=== PATIENT | female | born 1960 | race Caucasian/White ===

== ENCOUNTER 2022-03-31 11:03 | Emergency (ER) | payer BC ==
[~2022-03-31] VITALS: Ht 157.5 cm; Wt 60.3 kg
[2022-03-31] MEDS ORDERED: TDAP DIPH,PERTUSS,TET VAC/PF 0.5 ML DISP.SYRIN IM ONE ×2 (12:27→12:30)
[2022-03-31] MEDS ORDERED: AMOX-430 PO (12:39)
--- NOTE | 2022-03-31 12:46 | NUR ---
Gave pt RX and d/c instructions, pt verbalized understanding.
== END 2022-03-31 12:47 | disposition home or self-care (01) ==
LOC: ER 11:03
DX: S51.051A Open bite, right elbow, initial encounter (principal); W54.0XXA Bitten by dog, initial encounter; Y93.02 Activity, running; Y92.89 Other specified places as the place of occurrence of the external cause
CPT/HCPCS: 90715; A4663